=== PATIENT | female | born 1980 | race Caucasian/White ===

== ENCOUNTER 2019-08-30 15:16 | Outpatient (CLI) | payer OTHER, SELFPAY ==
--- NOTE | ~2019-08-30 | XR_ITS ---
EXAMINATION: XR chest 2V EXAM DATE: 08/30/2019 15:45 INDICATION: Chest heaviness. TECHNIQUE: Frontal and lateral projections of the chest obtained and reviewed. There is no prior luis dy for comparison. FINDINGS: The lungs are clear. There are no pleural effusions. The cardiomediastinal silhouette is within normal limits. There is no pneumothorax suspected. The bones and soft tissues are unremarkab le. There are cholecystectomy clips. IMPRESSION: No acute cardiopulmonary findings. Reviewed, dictated and finalized at location A.
[2019-08-30 15:33] LABS: Basophils Absolute Auto 0.04 K/mm3 (0.00-0.10); Basophils Percent Auto 0.6 % (0.0-1.0); Eosinophils Absolute Auto 0.21 K/mm3 (0.02-0.50); Eosinophils Percent Auto 3.1 % (1.0-6.0); Hematocrit 40.5 % (35.0-49.0); Hemoglobin 13.4 g/dL (12.0-15.0); Immature Granulocyte Absolute 0.02 K/mm3 (0.00-0.00); Immature Granulocyte Percent A 0.3 % (0.0-0.0); Lymphocytes Absolute Auto 2.01 K/mm3 (1.10-4.50); Mean Corpuscular HGB Conc 33.1 g/dL (32.0-36.0); Mean Corpuscular Hemoglobin 30.1 pg (27.0-31.0); Mean Platelet Volume 9.6 fl (9.2-11.8); Monocytes Absolute Auto 0.45 K/mm3 (0.10-0.90); Monocytes Percent Auto 6.7 % (2.0-11.0); Neutrophils Percent Auto 59.3 % (50.0-70.0); Platelet Count Result 319 K/mm3 (150-420); Red Blood Count 4.45 M/mm3 (4.20-5.40); Red Cell Distribution Width 12.9 % (11.6-14.4); White Blood Count 6.7 K/mm3 (4.8-10.8)
--- NOTE | 2019-08-30 15:35 | ECG_ITS ---
SINUS BRADYCARDIA WITH SINUS ARRHYTHMIA NORMAL ECG Electronically Signed On 08-30-2019 15:40:52 CDT by Cristiano Santana D.O. NO PREVIOUS ECG AVAILABLE FOR COMPARISON MTDD
[2019-08-30 15:36] LABS: Add Urine Microscopic? YES; Appearance Urine Clear (Clear); Bilirubin Urine Negative (Negative); Blood Urine Negative (Negative); Color Urine Yellow (Yellow); Glucose Urine UA Negative (Negative); Ketones Urine Negative (Negative); Leukocyte Esterase Ur 2+ (Negative); Nitrate Urine Negative (Negative); Protein Urine Negative (Negative); Specific Grav Ur 1.015 (1.010-1.020); Urobilinogen Urine 0.2 mg/dL (0.2-1.0); pH Urine 7.5 (5.0-8.0)
[2019-08-30 15:46] LABS: Bacteria Urine Trace /hpf; RBC Urine 0-2 /hpf (0-2); Squamous Epithelial Cell Urine Few /hpf (Few)
[2019-08-30 16:08] LABS: BNP 14.8 pg/mL (0-100)
[2019-08-30 16:53] LABS: Alanine Aminotransferase 138 U/L (14-59); Albumin Level 4.1 g/dL (3.4-5.0); Alkaline Phosphatase 88 U/L (46-116); Anion Gap 11.6 mmol/L (7-16); Aspartate Amino Transferase 42 U/L (15-37); Bilirubin,Total 0.2 mg/dL (0.00-1.00); Blood Urea Nitrogen 22 mg/dL (7-18); Carbon Dioxide 32 mmol/L (21-32); Chloride 104 mmol/L (98-108); Creatine Kinase 66 U/L (26-192); Estimated Glomerular Filt Rate > 60; Glucose 97 mg/dL (70-99); Osmolality Calculated 299 mOsm/kg (285-295); Potassium 4.6 mmol/L (3.5-5.1); Sodium 143 mmol/L (136-145); Thyroid Stimulating Hormone 0.97 uIU/mL (0.36-3.74); Total Protein 7.5 g/dL (6.4-8.2)
[2019-08-30 17:06] LABS: Beta HCG Quantitative < 1.00 mIU/mL (0-6); Troponin I < 0.02 ng/mL (0.00-0.056)
== END 2019-08-30 15:17 | disposition home or self-care (01) ==
PROVIDERS: PCP Internal Medicine; Visit Provider Internal Medicine
DX: R07.9 Chest pain, unspecified (principal); N91.2 Amenorrhea, unspecified
CPT/HCPCS: 36415; 71046; 80053; 81001; 82550; 82553; 83880; 84443; 84484; 84702; 85025; 85380; 93005

== ENCOUNTER 2019-09-06 08:17 | Outpatient (CLI) | payer OTHER, SELFPAY ==
--- NOTE | ~2019-09-06 | US_ITS ---
EXAMINATION: US abdomen limited DATE: 09/06/2019 09:43 INDICATION: Abnormal liver function tests. TECHNIQUE: Multiple grayscale and Doppler ultrasound images of the abdomen were obtained. COMPARISON: None FINDINGS: The visualized portions of the head, body, and tail of the pancreas are normal. The liver i s normal without focal lesion. No liver surface nodularity. There is normal flow in main portal vein. The gallbladder is absent. The common duct is normal and measures 2 mm. IMPRESSION: 1. Normal right upper quadrant ultrasound status post cholecystectomy. Reviewed, dictated and finalized at location E.
== END 2019-09-06 08:18 | disposition home or self-care (01) ==
LOC: CHSIMG 08:19
PROVIDERS: PCP Internal Medicine; Visit Provider Internal Medicine
DX: R94.5 Abnormal results of liver function studies (principal)
CPT/HCPCS: 76705

== ENCOUNTER 2019-10-25 15:59 | Outpatient (CLI) | payer OTHER, SELFPAY ==
[2019-10-25 16:28] LABS: Alanine Aminotransferase 30 U/L (4-35); Albumin Level 4.4 g/dL (3.5-5.1); Alkaline Phosphatase 75 U/L (38-126); Aspartate Amino Transferase 29 U/L (14-36); Bilirubin,Total 0.1 mg/dL (0.2-1.3); Blood Urea Nitrogen 18 mg/dL (7-17); Calcium 8.7 mg/dL (8.4-10.2); Carbon Dioxide 27 mmol/L (22-30); Chloride 104 mmol/L (98-107); Estimated Glomerular Filt Rate > 60; Glucose 105 mg/dL (65-105); Potassium 4.5 mmol/L (3.4-5.0); Sodium 140 mmol/L (137-145)
[2019-10-25 17:10] LABS: Iron 82 ug/dL (37-170)
[2019-10-25 17:20] LABS: Percent Iron Saturation 31 % (20-50)
[2019-10-27 22:12] LABS: Ceruloplasmin 30 mg/dL (18-53)
[2019-10-28 22:01] LABS: Mitochondrial (M2) Ab (IgG) <=20.0 U (<=20.0)
[2019-10-31 22:01] LABS: ALT 28 U/L (6-29); Alpha-2-Macroglobulin 204 mg/dL (106-279); Apolipoprotein A1 155 mg/dL (101-198); Fibrosis Score 0.05; Fibrosis Stage F0; GGT 22 U/L (3-50); Haptoglobin 139 mg/dL (43-212); Necroinflammat Act Grade A0; Total Bilirubin 0.2 mg/dL (0.2-1.2)
== END 2019-10-25 16:00 | disposition home or self-care (01) ==
PROVIDERS: PCP Internal Medicine; Visit Provider Internal Medicine Gastroenterology
DX: R74.8 Abnormal levels of other serum enzymes (principal)
CPT/HCPCS: 36415; 80053; 81596; 82104; 82390; 82728; 83520; 83540; 83550; 86038

== ENCOUNTER 2020-07-30 11:48 | Outpatient (CLI) | payer OTHER, SELFPAY ==
--- NOTE | ~2020-07-30 | XR_ITS ---
EXAMINATION: XR shoulder RT min 2V DATE: 07/30/2020 12:02 INDICATION: Right shoulder pain. TECHNIQUE: 4 views of right shoulder were obtained. COMPARISON: None. FINDINGS: Bone alignment is normal. There is a chronic impaction fracture deformity of superior poste rolateral humeral head (Hill-Sachs fracture deformity). No acute fracture. Glenohumeral joint is norm al. There is mild acromioclavicular joint osteoarthritis. IMPRESSION: 1. Mild acromioclavicular joint osteoarthritis. 2. Hill-Sachs fracture deformity of humeral head, likely old. Reviewed, dictated and finalized at location A.
== END 2020-07-30 11:49 | disposition home or self-care (01) ==
LOC: CHSIMG 11:50
PROVIDERS: PCP Internal Medicine; Visit Provider Internal Medicine
DX: M25.511 Pain in right shoulder (principal); S43.001A Unspecified subluxation of right shoulder joint, initial encounter
CPT/HCPCS: 73030

== ENCOUNTER 2021-08-05 10:27 | Outpatient (RCR) | payer OTHER, SELFPAY ==
[2021-07-21 12:27] VITALS: BP 114/71; PULSE 82
--- NOTE | ~2021-08-05 | US_ITS ---
EXAMINATION: US OB BPP wo non-stress DATE: 08/05/2021 11:41 INDICATION: Nonreactive cardiac tracing on in office exam TECHNIQUE: Real-time pelvic ultrasound was performed. The interpreting radiologist was not present fo r the study. COMPARISON: None. FINDINGS: There is a single living fetus in vertex presentation. The placenta is anterior. heart rate is 138 beats per minute (bpm). Biophysical profile performed by the technologist: breathing (30 sec sustained breathing in 30 minutes): 2 out of 2 movement (3 gross body movements in 30 minutes): 2 out of 2 tone (one episode of rzwduzj-hnssnmhvy-mkdrfsh limb movement): 2 out of 2 Amniotic fluid pocket (2 cm): 2 out of 2 Total score: 8 out of 8 IMPRESSION: 1. Single living fetus in vertex presentation with heart rate of 138 bpm. 2. Biophysical profile 8 out of 8. Reviewed, dictated and finalized at location A.
--- NOTE | ~2021-08-05 | US_ITS ---
EXAMINATION: US OB BPP wo non-stress EXAM DATE: 07/21/2021 12:16 INDICATION: Decel in office/hx of COVID. 3rd trimester. TECHNIQUE: Pelvic obstetrical transabdominal sonogram was performed by a technologist. There are mu ltiple grayscale and Doppler images available for interpretation. There are no earlier studies of th is gestation for comparison. FINDINGS: There is a single fetus identified in vertex presentation with a heart rate of 139 beats p er minute. The placenta is located in the anterior position. There is no sonographic evidence of ret roplacental hemorrhage identified. There is subjectively expected amount of amniotic fluid. BIOPHYSICAL PROFILE (performed by the technologist) breathing (30 sec sustained breathing in 30 minutes): 0 out of 2 movement (3 gross body movements in 30 minutes): 2 out of 2 tone (one episode of dvphpmi-yhwwnjvdq-wlotafg limb movement): 2 out of 2 Amniotic fluid pocket (2 cm): 2 out of 2 Total score: 6 out of 8 IMPRESSION: 1. Single fetus with heart rate of 139 bpm. 2. Abnormal BPS 6/8. Reviewed, dictated and finalized at location A.
[2021-08-05 11:53] VITALS: BP 125/81; PULSE 84
== END 2021-08-25 08:09 | disposition home or self-care (01) ==
LOC: ANHOBOP 10:27
PROVIDERS: PCP Internal Medicine; Visit Provider Obstetrics & Gynecology Gynecology
DX: O36.8330 Maternal care for abnormalities of the fetal heart rate or rhythm, third trimester, not applicable or unspecified (principal); Z3A.34 34 weeks gestation of pregnancy; Z3A.36 36 weeks gestation of pregnancy
CPT/HCPCS: 59025; 76819

== ENCOUNTER 2021-08-19 05:43 | Inpatient (IN) | payer OTHER, SELFPAY ==
[2021-08-19] VITALS (20 sets, daily range): BP systolic 102–141; BP diastolic 67–96; PULSE 68–98; RESP 18; TEMP 36.6–36.8; BMI 33.5
--- NOTE | 2021-08-19 07:02 | LDADM ---
This patient, Eunice Rboert, was admitted to Labor/Delivery/Recovery 102 on 08/19/21 at 05:43. Plans for labor, pain management and were discussed with patient. Patient/family oriented to hospital policies and general routines including ID bracelet, bed and alarms, visiting hours, pain management, procedures, bathroom and other care routines, personal items, smoking policy, room service/diet and guest tray routines, infant security routines, and visiting hours. Patient/Family are encouraged to report perceived risks to care and to ask questions if they do not understand what they are told or what they should do. See OBIX for further documentation.
[2021-08-19 07:19] LABS: Basophils Percent Auto 0.3 % (0.2-1.2); Eosinophils Absolute Auto 0.1 K/mm3 (0-0.3); Hematocrit 39.7 % (37.0-47.0); Immature Granulocyte Absolute 0.05 K/mm3 (0.00-0.031); Immature Granulocyte Percent A 0.5 % (0-0.5); Lymphocytes Absolute Auto 1.74 K/mm3 (0.9-3.2); Lymphocytes Percent Auto 17.4 % (18.3-44.2); Mean Corpuscular HGB Conc 32.7 g/dl (32-36); Mean Corpuscular Hemoglobin 29.8 pg (26-34); Mean Corpuscular Volume 91.1 fl (80-100); Mean Platelet Volume 9.7 fl (7.4-10.4); Monocytes Absolute Auto 0.6 K/mm3 (0.1-0.6); Monocytes Percent Auto 6.1 % (2.6-8.5); Neutrophils Absolute Auto 7.5 K/mm3 (1.3-6.7); Neutrophils Percent Auto 74.7 % (45.5-73.1); Platelet Count Result 270 k/mm3 (150-375); Red Blood Count 4.36 M/mm3 (4.2-5.4)
--- NOTE | 2021-08-19 07:39 | WPDOBADMIT ---
Obstetrics - Admit Note Admission Note: record reviewed. No pertinent additions to the history and/or any subsequent changes in the physical findings that are not consistent with the expected course of the were found. Additions to the history and/or subsequent changes in the physical findings follow. None. Arrived in active labor. SVE by RN 7cm with intact membranes. Discussed plan of care with pt. She denies desire for epidural. Discussed AROM and she is agreeable. AROM performed and small amount of green tinged, meconium stained amniotic fluid returned. SVE 7-8 cm, very soft and stretchy. Plan for expectant management.
[2021-08-19] MEDS: OXYTOCIN 30 UNITS/NS 500 ML 30 UNITS/500 ML BAG 999 UNITS IV CONT (08:21)
--- NOTE | 2021-08-19 08:30 | PM.OBPRVD ---
OB - Delivery Note Procedure Delivery date: 08/19/21 Procedure: Events: Other (Covid infection during ) Induction method: AROM Delivery augmentation: Rupture of Membranes Delivery monitor: External FHT and External Uterine Route of delivery: Laceration Description: Periurethral (hemostatic, no repair required) and Labial (bilateral, 1st degree. Hemostatic, no repair required. ) Specimen: Yes (Placenta) Quantitative Blood Loss (ml): 100 Anesthesia type: None Disposition: Floor Baby Date of : 08/19/21 Time of : 08:30 Weeks of gestation at delivery: 38 gender: Female Weight (pounds): 9 Weight (ounces): 5 presentation: vertex position: Left Occiput Anterior Placenta delivery description: Spontaneous Cord Vessel Description: 3 Vessels and Delayed Cord Clamping (40 seconds) score one minute: 8 score five minutes: 9
--- NOTE | 2021-08-19 08:32 | PM.OBDSVD ---
DS: Admitting Diagnosis Discharge Date 08/21/2021 Admitting Diagnosis IUP at 38 weeks, spontaneous labor DS: Discharge Diagnosis Discharge Diagnosis (1) 38 weeks gestation of : Code(s): Z3A.38 - 38 weeks gestation of Status: Acute (2) (normal spontaneous vaginal delivery): Code(s): O80 - Encounter for full-term uncomplicated delivery Status: Acute OB - DS: Summary OB Procedures : NST and Ultrasound OB Procedures Intrapartum: Spontaneous Vag Delivery OB Procedures: : None Peripartum Data Delivery Method: Natural Vaginal Laceration Description: Periurethral and Labial Episiotomy description: None complications: none Status at Discharge Functional status at discharge: independent ambulation Overall status at discharge: patient is back to baseline Time Spent with Patient Time attestation: Total time spent providing and/or coordinating discharge services: DS: Data Data Completed and Pending Labs on day of discharge: Labs from last 24 hours 08/19/21 08/19/21 07:09 07:09 WBC 10.0 RBC 4.36 Hgb 13.0 Hct 39.7 MCV 91.1 MCH 29.8 MCHC 32.7 RDW 14.0 Plt Count 270 MPV 9.7 Immature Gran % (Auto) 0.5 Neut % (Auto) 74.7 H Lymph % (Auto) 17.4 L [place] % (Auto) 6.1 Eos % (Auto) 1.0 Baso % (Auto) 0.3 Lymph # (Auto) 1.74 [place] # (Auto) 0.6 Eos # (Auto) 0.1 Baso # (Auto) 0.0 Abs Immat Gran (auto) 0.05 H Absolute Neuts (auto) 7.5 H Absolute Nucleated RBC 0.0 Nucleated RBC % 0.0 RPR Pending Discharge Plan Discharge Consulting providers: Mounika Pepper Discharging Clinician: Sakshi Darling Anticipated Discharge Date/Time: 08/20/21 08:35 Patient Disposition: Home, Self-Care Activity: may shower and pelvic rest Diet: as tolerated and regular Discharge Instructions: Education: Mom and Baby Guide Given to: Mother Follow-Up: Call your delivering provider's office for an appointment to be seen in: 6 Weeks Mom and baby [facility] for the follow-up appointment. Appointment Date/Time: Sunday, August 22, 2021 at 11:00 a.m. What to expect at your follow-up visit: Blood Pressure Check Physical Assessment Call [phone] if you are unable to keep your appointment time. BREAST CARE: * Wear a snug supportive bra. * For engorgement discomfort: Breast Feeding: * Apply warm moist washcloths * Express milk as needed to relieve engorgement * Wear loose clothing * For sore nipples: * Identify correct latch-on * Apply warm moist washcloths before and after nursing * Air dry nipples after nursing * May apply Lansinoh cream to nipples EPISIOTOMY/PERINEAL CARE: * Until bleeding stops, use your anderson bottle after urinating * Change your pad frequently throughout the day * You may take sitz baths several times a day (fill your bathtub with warm water and soak for 20 minutes.) Do NOT bathe in the water * No tub baths until seen by your physician - You may shower ACTIVITY: * Rest as much as possible. * Do not exercise or lift anything heavier than your baby (such as laundry or other children.) * Avoid stairs or driving as much as possible. * Do not put anything into the vagina. No douching, tampons, or sexual activity until seen by physician. NOTIFY PHYSICIAN IF YOU HAVE ANY QUESTIONS OR IF ANY OF THE FOLLOWING SYMPTOMS OCCUR: * If your perineum becomes red, swollen, or more painful than what you have experienced in the hospital. * If your vaginal bleeding becomes foul smelling. * If your vaginal bleeding becomes more heavy than a period or if your bleeding changes from pink to bright red. However, you may pass an occasional walnut-sized clot once or twice for the first week . * If you experience a sharp, shooting pain in you calves. * If you disc
[2021-08-19] MEDS: OXYTOCIN 30 UNITS/NS 500 ML 30 UNITS/500 ML BAG 125 UNITS IV CONT (08:49)
[2021-08-19] MEDS: IBUPROFEN 600 MG TABLET PO (09:38)
[2021-08-19 14:20] LABS: Rapid Plasma Reagin Non-Reactive (NonReactive)
--- NOTE | 2021-08-19 18:00 | OBPPTRN ---
Patient transferred to post room #283 via W/C. Support person present. Oriented to unit, room, information board, rooming in, admission packet and security measures. Patient verbalizes understanding.
[2021-08-20 00:30] VITALS: BP 123/74; PULSE 73; RESP 16; TEMP 36.6
[2021-08-20 04:40] VITALS: BP 116/62; PULSE 66; RESP 18; TEMP 36.9
[2021-08-20 05:52] LABS: Hematocrit 37.2 % (37.0-47.0); Hemoglobin 12.5 g/dL (12.0-15.0)
--- NOTE | 2021-08-20 07:45 | PM.OBPNVD ---
OB - PN: Subj Subjective Date/time seen: 08/20/21 07:45 Patient comments: no complaints and pain well controlled baby status: nursing well [place] feeding status: exclusively breast feeding OB - PN: Obj Data Labs CBC & Chem 7: 08/20/21 04:49 Labs: Laboratory Results - last 24 hr 08/19/21 08/19/21 08/20/21 07:09 07:09 04:49 Hgb 12.5 Hct 37.2 RPR Non-reactive Blood Type A Positive Antibody Screen Positive Antibody Identification Anti-E Antigen Identification C Antigen - NEGATIVE KELLY, IgG Interpret Negative KELLY, Poly Interpret Neg KELLY, Complement Interp Not Performed Enhanced Crossmatch See Detail OB - PN A/P Plan day: 1 Plan: routine care Time Spent With Patient Time: Total time spent is greater than 50% in coordination of care (as documented) at patient's floor/unit and/or counseling patient: Exam Narrative: Fundus @ U, firm and nontender.
[2021-08-20 08:40] VITALS: BP 101/68; PULSE 65; RESP 16; TEMP 36.6; O2SAT 97
[2021-08-20] MEDS: IBUPROFEN 600 MG TABLET PO (08:41)
[2021-08-20] MEDS: MULTIVIT/MIN/PREN/FOL AC/IRON TABLET 1 TAB PO (08:41)
--- NOTE | 2021-08-20 16:30 | PC.NURSE ---
Patient instructed on viewing the discharge video Mother & Baby Care, The First Two Weeks . Patient was given the opportunity and encouraged to ask questions. Patient verbalized understanding of information shared and has been given the mother/baby guide for home reference.
[2021-08-20 19:10] VITALS: BP 113/70; PULSE 77; RESP 16; TEMP 36.8
--- NOTE | 2021-08-21 07:39 | PM.OBPNVD ---
OB - PN: Subj Subjective Date/time seen: 08/21/21 07:39 Patient comments: no complaints and pain well controlled baby status: doing well and nursing well OB - PN: Obj Data Labs CBC & Chem 7: 08/20/21 04:49 OB - PN A/P Plan day: 2 Plan: routine care, discharge home and follow up 6 weeks Time Spent With Patient Time: Total time spent is greater than 50% in coordination of care (as documented) at patient's floor/unit and/or counseling patient: Exam : Bimanual exam- vagina & uterus: other (Uterus firm, nt @U)
[2021-08-21 07:50] VITALS: BP 110/72; PULSE 81; RESP 16; TEMP 36.4; O2SAT 99
[2021-08-21 08:00] VITALS: PULSE 81; RESP 16; O2SAT 99
[2021-08-21] MEDS: MULTIVIT/MIN/PREN/FOL AC/IRON TABLET 1 TAB PO (08:45)
--- NOTE | 2021-08-21 13:51 | PC.NURSE ---
1030 - Mother () verbalizes she is able to independently latch with appropriate positioning/alignment. She denies any nipple discomfort and is responsively . Infant is currently meeting outcomes for weight, output, jaundice and feeding frequencies of 8-12 times in 24 hours. Infant has had appropriate feedings in the last 24 hours meets the outcomes for weight, output and jaundice at this time. Mother states she is confident to continue effectively her infant at home. Mother voiced understanding of the education shared and mother declines any additional assistance/education at this time. Mother is encouraged to call for assistance if her infant doesn?t latch or there is discomfort with latching. Mother voiced understanding of information shared and mom and baby guide reviewed for additional resource information . Reported to the primary RN.
[2021-08-22 11:16] VITALS: BP 128/77; PULSE 71; RESP 20; TEMP 36.8; O2SAT 100
== END 2021-08-21 13:00 | disposition home or self-care (01) | DRG 807 ==
LOC: ANHLDR 14:52 → ANHOB2 18:49
PROVIDERS: Advanced Practice Midwife; Admitting Provider Obstetrics & Gynecology Gynecology; PCP Internal Medicine; Visit Provider Obstetrics & Gynecology Gynecology
DX: O77.0 Labor and delivery complicated by meconium in amniotic fluid (principal); Z37.0 Single live birth; Z3A.38 38 weeks gestation of pregnancy; O36.8330 Maternal care for abnormalities of the fetal heart rate or rhythm, third trimester, not applicable or unspecified; Z86.16 Personal history of COVID-19; O70.0 First degree perineal laceration during delivery; O71.82 Other specified trauma to perineum and vulva
CPT/HCPCS: 36415; 85014; 85018; 85025; 86592; 86850; 86870; 86880; 86900; 86901; 86902; 86905; 86922; 86971; 88307; A9270; J2590

== ENCOUNTER → 2023-03-09 12:32 | Outpatient (CLI) | payer OTHER, SELFPAY ==
--- NOTE | ~2023-03-09 | MM_ITS ---
EXAMINATION: MM screening junior BI w tamara HISTORY: Screening mammogram TECHNIQUE: Craniocaudal and mediolateral oblique 3-D tomosynthesis images were obtained and synthetic 2-D images were generated. CAD analysis was submitted and interpreted. COMPARISON: No prior mammogram is available for comparison at this institution. BREAST PARENCHYMAL COMPOSITION: There are scattered areas of fibroglandular density. FINDINGS: There is no evidence of suspicious mass, calcification, or architectural distortion to sugg est malignancy in either breast. IMPRESSION: 1. No mammographic evidence of malignancy. 2. Recommend routine screening mammography in one year. BI-RADS Category 1: Negative Reviewed, dictated and finalized at location A. 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
== END ==
PROVIDERS: PCP Advanced Practice Midwife; Visit Provider Advanced Practice Midwife
DX: Z12.31 Encounter for screening mammogram for malignant neoplasm of breast (principal)
CPT/HCPCS: 77063; 77067

== ENCOUNTER 2023-12-17 08:02 | Outpatient (CLI) | payer OTHER, SELFPAY ==
--- NOTE | ~2023-12-17 | US_ITS ---
EXAMINATION: US OB <= 14 weeks fetus DATE: 12/17/2023 08:27 INDICATION: Advanced maternal age TECHNIQUE: Real-time transabdominal and transvaginal obstetric ultrasound. FINDINGS: No prior studies for comparison. The uterus measures 13.5 x 7.7 x 2.7 cm. There is an intrauterine gestational sac, with pole id entified. The crown rump length measures 4.7 cm, which correlates with a estimated gestational age o f 11 weeks 4 days. heart rate 161 bpm. There is a small subchorionic hematoma measuring 9 mm. F etal heart tones are identified measuring 161 bpm. The ovaries are within normal limits. IMPRESSION: 1. SL IUP with an EGA of 11 weeks, 4 days (EDC by current ultrasound of 07/03/2024). 2: Small subchorionic hematoma measuring 9 x 9 x 9 mm. Reviewed, dictated and finalized at location B. IMPRESSION: 1. SL IUP with an EGA of 11 weeks, 4 days (EDC by current ultrasound of 07/04/19 25). 2: Small subchorionic hematoma measuring 9 x 9 x 9 mm.
== END 2023-12-17 08:03 | disposition home or self-care (01) ==
LOC: MICIMG 08:03
PROVIDERS: PCP Obstetrics & Gynecology Gynecology; Visit Provider Obstetrics & Gynecology Gynecology
DX: O46.90 Antepartum hemorrhage, unspecified, unspecified trimester (principal); Z3A.00 Weeks of gestation of pregnancy not specified
CPT/HCPCS: 76801

== ENCOUNTER 2024-02-01 14:04 | Outpatient (CLI) | payer OTHER, SELFPAY ==
--- NOTE | ~2024-02-01 | US_ITS ---
EXAMINATION: US OB limited DATE: 02/01/2024 14:59 INDICATION: Subchronic hematoma in the first trimester. Follow-up. TECHNIQUE: Real-time ultrasound of the pelvis was performed. COMPARISON: Ultrasound 12/17/2023 FINDINGS: There is a single fetus in vertex presentation. The placenta is anterior, 8.6 cm from the cervix. Fe glory heart rate is 140 beats per minute (bpm). The amniotic fluid volume is subjectively normal. IMPRESSION: 1. Single living fetus in vertex presentation. 2. No subchorionic hematoma. Reviewed, dictated and finalized at location A.
== END 2024-02-01 14:05 | disposition home or self-care (01) ==
LOC: MICIMG 14:05
PROVIDERS: PCP Obstetrics & Gynecology Gynecology; Visit Provider Obstetrics & Gynecology Gynecology
DX: O36.8910 Maternal care for other specified fetal problems, first trimester, not applicable or unspecified (principal); Z3A.00 Weeks of gestation of pregnancy not specified
CPT/HCPCS: 76815

== ENCOUNTER 2024-06-22 09:24 | Outpatient (RCR) | payer OTHER, SELFPAY ==
--- NOTE | ~2024-06-22 | US_ITS ---
EXAMINATION: US OB BPP wo non-stress DATE: 06/22/2024 10:58 INDICATION: Nonreactive nonstress test on in office examination TECHNIQUE: Real-time pelvic ultrasound was performed. The interpreting radiologist was not present fo r the study. COMPARISON: 02/01/2024 FINDINGS: There is a single living fetus in vertex presentation. The placenta is anterior. heart rate is 138 beats per minute (bpm). Amniotic fluid volume is subjectively normal with normal deepest vertica l pocket measurement of 7.9 cm. Biophysical profile performed by the technologist: breathing (30 sec sustained breathing in 30 minutes): 2 out of 2 movement (3 gross body movements in 30 minutes): 2 out of 2 tone (one episode of gjxbspn-irukevotg-dghsrve limb movement): 2 out of 2 Amniotic fluid pocket (2 cm): 2 out of 2 Total score: 8 out of 8 IMPRESSION: 1. Single living fetus in vertex presentation with heart rate of 138 bpm. 2. Biophysical profile 8 out of 8. Reviewed, dictated and finalized at location L. 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
[2024-06-22 10:07] VITALS: BP 127/81; PULSE 87
--- NOTE | 2024-06-22 11:20 | PC.NURSE ---
1120- Spoke with Dr. Swartz regarding patient being sent over from office by [facility] for non reactive NST in office. NST reactive here and BPP 11/24. No further orders .
== END 2024-09-20 23:59 | disposition home or self-care (01) ==
LOC: ANHOBOP 09:24
PROVIDERS: PCP Internal Medicine; Visit Provider Obstetrics & Gynecology Gynecology
DX: O26.893 Other specified pregnancy related conditions, third trimester (principal); Z3A.37 37 weeks gestation of pregnancy
CPT/HCPCS: 59025; 76819

== ENCOUNTER 2024-06-26 20:17 | Observation (INO) | payer OTHER, SELFPAY ==
[2024-06-26 20:26] VITALS: TEMP 36.2
--- OUTSIDE RECORDS SUMMARY | 2024-06-26 20:51 | XMS_ITS | Referral Summary ---
Author Organization [facility] Address [address] [place] [address] Care Team Providers Care Spray Applicator Name Role Phone Simone Martinez MD Primary Care Provider [phone] Source Comments [facility],non-owned Affiliates and Associated Physician Practices is amultiple site organization consisting of ambulatory clinics and hospital sitesin [place], [place] and [place]. This disclosure is being madepursuant to the Care Everywhere program and may not contain all information available regarding this patient. 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 No dating scan due to patient sure of LMP this per OB office. 24 weeks gestation of 04/04/2021 Social History Tobacco Use Types Packs/Day Years Used Date Smoking Tobacco: Never Smokeless Tobacco: Never Alcohol Use Standard Drinks/Week Comments Not Currently 0 (1 standard drink = 0.6 oz pur e alcohol) Sex and Gender Information Value Date Recorded Sex Assigned at Not on file Gender Identity Not on file Sexual Orientation Not on file Plan of Treatment Not on file Care Teams Spray Applicator Relationship Specialty Start Date End Date Simone Martinez MD [address] [place], [place] [id number] PCP - General 08/26/21
--- OUTSIDE RECORDS SUMMARY | 2024-06-26 20:51 | XMS_ITS | Clinical Summary ---
Author Organization [facility] Address [address] [place] [address] Phone Care Team Providers Care Vessel Builder Name Role Phone Simone Martinez MD Primary Care Provider [phone] Encounters Date Type Department Care Team Description 06/24/2024 External Device Data STL ABSTRACTION Provider, Abstract 06/23/2024 External Device Data STL ABSTRACTION Provider, Abstract 06/20/2024 External Device Data STL ABSTRACTION Provider, Abstract 06/12/2024 7:21 AM STRETCHER OPERATOR - 06/12/2024 11:59 PM STRETCHER OPERATOR Hospital Encounter [facility] [address] [place] [address] Dori Sandhu MD Discharge Disposition: Home or Self Care 06/12/2024 Abstract [facility] - [facility] [address] [place] [address] Eileen Dalal 06/06/2024 External Device Data STL ABSTRACTION Provider, Abstract 05/30/2024 External Device Data STL ABSTRACTION Provider, Abstract 05/11/2024 8:57 AM STRETCHER OPERATOR - 05/11/2024 11:59 PM STRETCHER OPERATOR Hospital Encounter [facility] 2022 Cassie Jones [address] [place] [address] Dori Sandhu MD Discharge Disposition: Home or Self Care 05/11/2024 External Device Data STL ABSTRACTION Provider, Abstract 05/09/2024 External Device Data STL ABSTRACTION Provider, Abstract 05/02/2024 External Device Data STL ABSTRACTION Provider, Abstract 04/17/2024 9:20 AM STRETCHER OPERATOR - 04/17/2024 11:59 PM STRETCHER OPERATOR Hospital Encounter [facility] 2022 Cassie Jones [address] [place] [address] Rahul Coley MD Mathur, Manish, MD Discharge Disposition: Home or Self Care from Last 3 Months Social History Tobacco Use Types Packs/Day Years Used Date Smoking Tobacco: Never Assessed Comments Unknown Sex and Gender Information Value Date Recorded Sex Assigned at Not on file Legal Sex Female 2:09 PM CDT Gender Identity Not on file Sexual Orientation Not on file Plan of Treatment Health Maintenance Due Date Last Done Comments Pre-Diabetes and Diabetes Screening 1982 DTAP/TDAP/TD VACCINES (1 - Tdap) 2001 HEPATITIS B VACCINES (1 of 3 - 19+ 3-dose series) 2001 CERVICAL CANCER SCREENING 2012 11/28/2007 BREAST CANCER SCREENING 2022 INFLUENZA VACCINE (#1) 2023 HPV VACCINES Aged Out No longer eligi ble based on patient's age to complete this topic Procedures Procedure Name Priority Date/Time Associated Diagnosis Comments US OB FOLLOW UP PER FETUS Routine 06/12/2024 7:47 AM STRETCHER OPERATOR Multigravida of advanced maternal age in second trimester US OB FOLLOW UP PER FETUS Routine 05/11/2024 9:46 AM STRETCHER OPERATOR Multigravida of advanced maternal age in second trimester US OB FOLLOW UP PER FETUS Routine 04/17/2024 9:43 AM STRETCHER OPERATOR Multigravida of advanced maternal age in second trimester from Last 3 Months Results * US OB FOLLOW UP PER FETUS (06/12/2024 7:47 AM STRETCHER OPERATOR) Only the most recent of3 resultswithin the time period is included. Anatomical Region Laterality Modality Pelvis Ultrasound 06/12/2024 7:27 AM STRETCHER OPERATOR Narrative 06/12/2024 8:31 AM STRETCHER OPERATOR STL FOLLOW UP ----- Pat. Name: ROSALVA LAYNE Study Date: 06/12/2024 7:27am Pat. NO: [id number] Referring MD: MARIAN SCALES MD Site: [place] [facility] Ballroom Dancer: Shara Harris RDMS : 1980 Age: 43 ----- INDICATION ----- Screening Follow-Up Advanced Maternal Age (AMA), Multigravida Maternal Obesity (BMI<40) Complicating Grand Multiparity Antepartum Complications, Other Specified CODING ----- Diagnoses Z3A.36: Weeks of gestation O09.43: Supervision of with grand multiparity O99.213: Obesity complicating O09.523: Supervision of elderly multigravida Z36.3: Encounter for screening for malformations Z3A.36: Weeks of gestation O99.891: Other specified diseases and conditions complicating O09.43: Supervision of with grand multiparity O99.213: Obesity complicating O09.523: Supervision of elderly multigravida Z36.2: Encounter for other screening follow-up Procedures 53530: Ultrasound, uterus, real time with image documentation, follow up, transabdominal approach per fetus HISTORY ----- OB History 11. Para 10 T10L10 METHOD ----- Transabdominal ultrasound examination ----- Rey . Number of fetuses: 1 DATING ----- GA by prior assessment 36 w + 2 d PETRONA by prior assessment: 07/08/2024 Ultrasound examination on: 06/12/2024 GA by U/S based upon: AC, BPD, EFW, Femur, HC GA by U/S 36 w + 5 d PETRONA by U/S: 07/05/2024 Method of dating: Restore dating from previous exam Assigned: based on stated PETRONA, selected on 02/21/2024 Assigned GA 36 w + 2 d Assigned PETRONA: 07/08/2024 BIOMETRY ----- BPD 89.9 mm 36w 3d 64% Hadlock OFD 119.3 mm -/- 99% Qing HC 335.2 mm 38w 3d 71% Hadlock AC 332.7 mm 37w 1d 83% Hadlock Femur 68.2 mm 35w 0d 17% Hadlock HC / AC 1.01 44% Nicolaides Weight Calculation: EFW 3,007 g 36w 6d 64% Hadlock EFW (lb,oz) 6 lb 10 oz EFW by Hadlock ([id number]) Head / Face / Neck Biometry: Manager Occupational 4.2 mm Extremities / Bony Struc Biometry: FL / BPD 0.76 FL / HC 0.20 FL / AC 0.21 GENERAL EVALUATION ----- Cardiac activity present. FHR 155 bpm. movements: present. Presentation: cephalic Placenta: Placental site: anterior Umbilical cord: Cord vessels: 3 vessel cord. Insertion site: placental insertion: normal Amniotic fluid: Amount of AF: normal amount. MVP 5.5 cm. AL 13.6 cm. Q1 4.0 cm, Q2 2.0 cm, Q3 2.1 cm, Q4 5.5 cm ANATOMY ----- The following structures appear normal: Head / Neck Cranium. Midline falx. Heart / Thorax Diaphragm. Abdomen Stomach. Kidneys. The following structures could not be adequately visualized: Abdomen Bladder. GROWTH OVERVIEW ----- Exam date GA BPD (mm) HC (mm) AC (mm) FL (mm) HL (mm) EFW (g) 02/21/2024 20w 2d 47.7 56% 180.2 49% 169.9 90% 35.6 76% 31.3 57% 427 95% 04/17/2024 28w 2d 73.3 74% 274.6 72% 257.9 87% 53.6 38% 1,391 79% 05/11/2024 31w 5d 83.4 89% 308.3 83% 296.1 92% 61.4 40% 2,136 83% 06/12/2024 36w 2d 89.9 64% 335.2 71% 332.7 83% 68.2 17% 3,007 64% COMMENT ----- Patient's name and date of were verified by the weeder prior to the exam IMPRESSION ----- -Single living fetus with a gestational age of 36w 2d based on the reported dates. -cephalic presentation. -The EFW is 3007 g which is at the 64%. The abdominal circumference is at the 83%. -Unremarkable limited anatomy noted to extent of ultrasound views. -Bladder/3 VC view is suboptimally visualized. -The amniotic fluid is normal for gestational age. (AL of 13.6 cm, MVP of 5.5 cm) -The placenta is anterior Twice weekly testing is recommended. Thank you for allowing us to participate in the care of this patient. Procedure Note Miranda Kirkland MD - 06/12/2024 ST FOLLOW UP ----- Pat. Name:Sonu LAYNE Date:06/12/2024 7:27am Pat. NO: [id number] MD:MARIAN SCALES [facility]Shara Harris RDMS :1980Age:43 ----- INDICATION ----- Screening Follow-Up Advanced Maternal Age (AMA), Multigravida Maternal Obesity (BMI<40) Complicating Grand Multiparity Antepartum Complications, Other Specified CODING ----- Diagnoses Z3A.36: Weeks of gestation O09.43: Supervision of with grandmultiparity O99.213: Obesity complicating O09.523: Supervision of elderly multigravida Z36.3: Encounter for screening formalformations Z3A.36: Weeks of gestation O99.891: Other specified diseases and conditionscomplicating O09.43: Supervision of with grandmultiparity O99.213: Obesity complicating O09.523: Supervision of elderly multigravida Z36.2: Encounter for other screeningfollow-up Procedures 31267: Ultrasound, uterus, real time withimage documentation, follow up, transabdominal approach per fetus HISTORY ----- OB History 11. Para 10 T10L10 METHOD ----- Transabdominal ultrasound examination ----- Rey . Number of fetuses: 1 DATING ----- GA by prior [id number] w + 2 d PETRONA by prior assessment:07/08/2024 Ultrasound examination on:06/12/2024 GA by U/S based upon:AC, BPD, EFW, Femur, HC GA by U/S36 w + 5 d PETRONA by U/S:07/05/2024 Method of dating:Restore dating from previous exam Assigned:based on stated PETRONA, selected on 02/21/2024 Assigned GA36 w + 2 d Assigned PETRONA:07/08/2024 BIOMETRY ----- BPD 89.9 mm 36w 3d 64%Hadlock OFD 119.3 mm -/- 99%Qing HC 335.2 mm 38w 3d 71%Hadlock AC 332.7 mm 37w 1d 83%Hadlock Femur 68.2 mm 35w 0d 17%Hadlock HC / AC 1.01 44%Nicolaides Weight Calculation: EFW 3,007 g 36w 6d64% Hadlock EFW (lb,oz) 6 lb 10 oz EFW by Hadlock ([id number]) Head / Face / Neck Biometry: Manager Occupational 4.2mm Extremities / Bony Struc Biometry: FL / BPD 0.76 FL / HC 0.20 FL / AC 0.21 GENERAL EVALUATION ----- Cardiac activity present. FHR 155 bpm. movements: present.Presentation: cephalic Placenta: Placental site: anterior Umbilical cord: Cord vessels: 3 vessel cord. Insertion site: placentalinsertion: normal Amniotic fluid: Amount of AF: normal amount. MVP 5.5 cm. AL 13.6 cm. Q14.0 cm, Q2 2.0 cm, Q3 2.1 cm, Q4 5.5 cm ANATOMY ----- The following structures appear normal: Head / Neck Cranium. Midline falx. Heart / Thorax Diaphragm. Abdomen Stomach. Kidneys. The following structures could not be adequately visualized: Abdomen Bladder. GROWTH OVERVIEW ----- Exam date GA BPD (mm) HC (mm) AC (mm) FL(mm) HL (mm) EFW (g) 02/21/2024 20w 2d 47.7 56% 180.2 49% 169.9 90%35.6 76% 31.3 57% 427 95% 04/17/2024 28w 2d 73.3 74% 274.6 72% 257.9 87%53.6 38% 1,391 79% 05/11/2024 31w 5d 83.4 89% 308.3 83% 296.1 92%61.4 40% 2,136 83% 06/12/2024 36w 2d 89.9 64% 335.2 71% 332.7 83%68.2 17% 3,007 64% COMMENT ----- Patient's name and date of were verified by the weeder prior tothe exam IMPRESSION ----- -Single living fetus with a gestational age of 36w 2d based on thereported dates. -cephalic presentation. -The EFW is 3007 g which is at the 64%. The abdominal circumference is atthe 83%. -Unremarkable limited anatomy noted to extent of ultrasound views. -Bladder/3 VC view is suboptimally visualized. -The amniotic fluid is normal for gestational age. (AL of 13.6 cm, MVP of5.5 cm) -The placenta is anterior Twice weekly testing is recommended. Thank you for allowing us to participate in the care of this patient. us Dori Sandhu MD US ORDERABLES Final Result from Last 3 Months Insurance [facility] Care Teams Vessel Builder Relationship Specialty Start Date End Date Simone Martinez MD [address] [place] [id number] PCP - General Internal Medicine 03/03/16
--- OUTSIDE RECORDS SUMMARY | 2024-06-26 20:51 | XMS_ITS | Clinical Summary ---
Author Organization [facility] Address [address] [place] [address] Care Team Providers Care Convention Planner Name Role Phone Simone Martinez MD Primary Care Provider [phone] Source Comments [facility],non-owned Affiliates and Associated Physician Practices is amultiple site organization consisting of ambulatory clinics and hospital sitesin [place], [place], [place] and [place]. This disclosure is being madepursuant to the Care Everywhere program and may not contain all information available regarding this patient. Last updated 18.[facility] Allergies No known active allergies Active Problems [...] Health Maintenance Due Date Last Done Comments LIPID TESTING 1982 MAMMOGRAM 1982 PAP SMEAR 1982 HIV SCREENING 1997 HEPATITIS C SCREENING 08/27/2000 DTAP/TDAP/TD VACCINES (1 - Tdap) 2001 HEPATITIS B VACCINE (1 of 3 - 19+ 3-dose series) 2001 COVID-19 VACCINE (1 - 2023- season) 2023 INFLUENZA VACCINE (#1) 2023 , 02/06/2015, 04/01/2007, Additional history exists DEPRESSION SCREENING 04/19/2024 ZOSTER VACCINE (1 of 2) 2032 HIB VACCINE Aged Out No longer eligi ble based on patient's age to complete this topic HPV VACCINE Aged Out No longer eligi ble based on patient's age to complete this topic MENINGOCOCCAL (Group B) VACCINE Aged Out No longer eligible based on patient's age to complete this topic MENINGOCOCCAL VACCINE Aged Out No baylee roxanna eligible based on patient's age to complete this topic PNEUMOCOCCAL VACCINE Aged Out No long er eligible based on patient's age to complete this topic Care Teams Convention Planner Relationship Specialty Start Date End Date Simone Martinez MD [address] [place] [address] PCP - General 08/26/21
--- OUTSIDE RECORDS SUMMARY | 2024-06-26 20:51 | XMS_ITS | Clinical Summary ---
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 Never 08/13/2020 Average Number of Drinks Not on file 021 Frequency of Binge Drinking Not on file 07/19 Comments No Sex and Gender Information Value Date Recorded Sex Assigned at Not on file Legal Sex Female 6:13 PM CDT Gender Identity Not on file Sexual Orientation Not on file Last Filed Vital Signs Vital Sign Reading Time Taken Comments Blood Pressure 148/109 08/23/2023 12:26 AM CDT Pulse 76 08/23/2023 12:26 AM CDT Temperature 36.9 C (98.4 F) 08/23/2023 12:26 AM CDT Respiratory Rate 18 08/23/2023 12:26 AM CDT Oxygen Saturation 96% 08/23/2023 12:26 AM CDT Inhaled Oxygen Concentration - - Weight 97.5 kg (215 lb) 08/23/2023 12:26 AM CDT Height 180.3 cm (5' 11 ) 08/23/2023 12:26 AM CDT Body Mass Index 29.99 08/23/2023 12:26 AM CDT Plan of Treatment Health Maintenance Due Date Last Done Comments Cervical Cancer Screening Pa p Smear (Age 30 to 64) Every 3 Years 1982 Annual Physical 1985 Hepatitis C 2000 DTaP, Tdap and Td Vaccines ( 1 - Tdap) 2001 Hepatitis B Vaccines (1 of 3 - 19+ 3-dose series) 2001 Cervical Cancer Screening Pa p with HPV Testing (Age 30 to 64) Every 5 Years 2012 Cervical Cancer Screening with HPV 2012 Mammogram Screening 2022 COVID-19 Vaccine (2023-2 5 season) 2023 Influenza Adult (#1) 2024 HPV Vaccines Aged Out No longer eligi ble based on patient's age to complete this topic Meningococcal B Vaccine Aged Out No l onger eligible based on patient's age to complete this topic Meningococcal Vaccine Aged Out No baylee roxanna eligible based on patient's age to complete this topic Pneumococcal Vaccine: Pediat rics (0 to 5 Years) and At-Risk Patients (6 to 64 Years) Aged Out No longer eligible b ased on patient's age to complete this topic RSV Immunizations Under 20 Months Aged Out No longer eligible based on patient's age to complete this topic Medical Devices Implanted Type Area Network Coordinator Device Identifier Shelf Expiration Date Model / Serial / Lot Knotless Fiber Mitch With #2 Suture Implanted:Qty: 1 on 09/05/2020 by Caden Hanson MD at [facility] Right: Shoulder 04/18/2025 [id number] / / [id number] Knotless Fiber Mitch With #2 Suture Implanted:Qty: 1 on 09/05/2020 by Caden Hanson MD at [facility] Right: Shoulder 04/18/2025 [id number] / / [id number] Knotless Fiber Mitch Implanted:Qty: 1 on 09/05/2020 by Caden Hanson MD at [facility] Right: Shoulder 04/18/2025 [id number] / / [id number] Insurance Care Teams Acidizer Helper Relationship Specialty Start Date End Date Simone Martinez MD [address] [place] [address] PCP - General INTERNAL MEDICINE 08/13/20
--- OUTSIDE RECORDS SUMMARY | 2024-06-26 20:51 | XMS_ITS | Encounter Summary ---
Author Organization [facility] Address [address] [place] [address] Care Team Providers Care Program Support Specialist Name Role Phone Simone Martinez MD Primary Care Provider [phone] Encounter Details Date Type Department Care Team (Late st Contact Info) Description 06/24/2024 External Device Data STL ABSTRACTION Provider, Abstract NO ADDRESS ON FILE Social History Tobacco Use Types Packs/Day Years Used Date Smoking Tobacco: Never Assessed Comments Unknown Sex and Gender Information Value Date Recorded Sex Assigned at Not on file Legal Sex Female 2:09 PM CDT Gender Identity Not on file Sexual Orientation Not on file documented as of this encounter Plan of Treatment Not on file documented as of this encounter Visit Diagnoses Not on filedocumented in this encounter Care Teams Program Support Specialist Relationship Specialty Start Date End Date Simone Martinez MD [address] [place] [address] PCP - General Internal Medicine 03/03/16 documented as of this encounter
--- OUTSIDE RECORDS SUMMARY | 2024-06-26 20:51 | XMS_ITS | Continuity of Care Document ---
Author Organization [facility] Address [address] [place] [address] Phone Care Team Providers Care Favor Maker Name Role Phone Unavailable Unavailable Unavailable Advance Directives Directive Yes / No Effective Date File Name No Information Encounters Encounter Description Practice Location Reason(s) For Visit Diagnoses Date Provider Providers Copied on Encounter [facility], [address], [place], [place], [id number], tel:[phone] [facility] No Information No Information Referring Provider: ELIZA To, [address], [place], [address]. tel:[phone] Family History Family Member Type Diagnosis Age At Onset No Information Payers Payer name Insurance type Covered democrat ID Authoriza dora(s) [facility] [id number] Social History Type Description Quantity Date Captured Comments Sex Female Smoking Status No Information Chief Complaint And Reason For Visit No Information History Of Present Illness Encounter Date Complaint History Of Prese nt Illness No Information Instructions Date Instruction Additional Infor mation No Information Assessments Type Assessment Date No Information
--- OUTSIDE RECORDS SUMMARY | 2024-06-26 20:51 | XMS_ITS | Patient Health Summary ---
Author Organization [facility] Address [address] [place] [address] Care Team Providers Care Flight Engineer Helicopter Name Role Phone Simone Martinez MD Primary Care Provider [phone] Note from [facility],non-owned Affiliates and Associated Physician Practices is amultiple site organization consisting of ambulatory clinics and hospital sitesin [place], [place], [place] and [place]. This disclosure is being madepursuant to the Care Everywhere program and may not contain all information available regarding this patient. 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 04/07/2021 Encounter for anatomic survey 04/04/2021 Supervision of high-risk of elderly mu ltigravida 04/04/2021 24 weeks gestation of 04/04/2021 Social History Tobacco Use Types Packs/Day Years Used Date Smoking Tobacco: Never Smokeless Tobacco: Never Alcohol Use Standard Drinks/Week Comments Not Currently 0 (1 standard drink = 0.6 oz pur e alcohol) Sex and Gender Information Value Date Recorded Sex Assigned at Not on file Gender Identity Not on file Sexual Orientation Not on file Procedures * SONOGRAM - COMPLETE(Performed 07/21/2021) Performed for Encounter for repeat ultrasound of pyelectasis, antepartum, single or unspecified fetus (HCC) * SONOGRAM - COMPLETE(Performed 06/20/2021) Performed for Encounter for repeat ultrasound of pyelectasis, antepartum, single or unspecified fetus (HCC) * SONOGRAM - COMPLETE(Performed 05/09/2021) Performed for Anti-E 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 Anatomical Region Laterality Modality Other 07/21/2021 8:36 AM CDT Narrative 07/21/2021 9:41 AM CDT [facility] PHONE: FAX: Pat. Name: ROSALVA LAYNE Pat. No: [id number] Study Date: 07/21/2021 8:36am , Age: 05 1980, 40 Pregnancies: 10, Para 9 Height: 71 in Weight: 205 lb LMP: 11/22/2020 GA by LMP: 34w3d GA by Base: 34w3d PETRONA: 08/29/2021 GA by US: 35w5d PETRONA: 08/20/2021 GA Selected: 34w3d (LMP) PETRONA: 08/29/2021 Referring MD: Cj Omalley MD Construction Secretary: Kathy Mcdonald RDMS CPT4: 94851 BMI: 28.59 Hist/Ind: Reassess kidneys - UTD A1 of the right kidney on 05/09/21 Anti Rh'Big E' <1:1 AMA G2 Turners Syndrome Complete anatomic survey Normal GCT (per patient) MEASUREMENTS & AGE GROWTH EVALUATION Measurement GA Range Srce %for GA Ratios ----- ---- ------- BPD 8.9 cm 36w1d (03m2b-67u1o) Hadl BPD 90% FL/BPD 0.76 (0.71 - 0.87) HC 32.1 cm 36w2d (30o4d-33z6o) Hadl HC 62% FL/AC 0.20 (0.20 - 0.24* AC 34.7 cm 38w4d (70u3w-55f2g) Hadl AC >99 HC/AC 0.93 (0.94 - 1.13* FL 6.8 cm 35w0d (44p3k-93l5o) Hadl FL 55% CI 0.80 (0.70 - 0.86) HL 6.1 cm 35w1d (88z5h-87v9y) Renny HL 63% GA for sonogram 35w5d (89w8a-80i1b) Weight Estimate: based on (BPD,HC,AC,FL) Hadlock Weight: 3152 gm (2692-3612gm) Had : 6lbs, 15oz Normal: 2464 gm (1848-3080gm) Had Wt% >97 for 34w3d Heart Rate: 157 bpm Amniotic Fluid Index: 12.0cm (08.0-24.8) Q1: 4.9cm Q2: 1.9cm Q3: 1.9cm Q4: 3.4cm EVAL, PLACENTA Presentation: cephalic Placenta: anterior Heart Rate: 157 bpm Amniotic Fluid Volume: normal Anatomy!Normal!Abnormal!Suboptimal!Prev. Seen!Comments Diaphragm ! x ! ! ! ! Stomach ! x ! ! ! ! Kidneys ! x ! ! ! !Right AP = 0.73 cm, Left AP = 0.62 cm Bladder ! x ! ! ! ! CLINICAL SUMMARY Study Number: 4 A single fetus is seen in cephalic presentation. The measurements today are consistent with greater than expected size for the PETRONA provided. The PETRONA selected is based on her LMP and a prior ultrasound examination. The amniotic fluid volume is normal. IMPRESSION: Single, live, intrauterine at 34w3d Amniotic fluid volume: within normal limits size is large for gestational age RECOMMEND: Ultrasound in 4 weeks for growth assessment and to reassess kidneys Thank you for allowing us the opportunity to care for your patient. Manas Peña MD <Electronic Signature> 07/21/2021 09:37am Mike Vann MD [facility] ORDERABLES Care Teams Flight Engineer Helicopter Relationship Specialty Start Date End Date Simone Martinez MD [address] [place] [address] PCP - General 08/26/21
[2024-06-26 21:00] VITALS: BP 120/75; PULSE 88
[2024-06-26] MEDS: ACETAMINOPHEN 500 MG TABLET 1000 MG PO (21:38)
[2024-06-26 22:27] VITALS: BP 108/63; PULSE 83
--- NOTE | 2024-06-26 22:28 | OBADM ---
This patient, Eunice Robert, admitted to the OB room Labor/Delivery/Recovery 105 for observation. Patient/family oriented to hospital policies and general routines including ID bracelet, bed and alarms, visiting hours, pain management, procedures, bathroom and other care routines, personal items, smoking policy, room service/diet, and visiting hours. Patient/Family are encouraged to report perceived risks to care and to ask questions if they do not understand what they are told or what they should do.
[2024-06-26 22:31] VITALS: BMI 35.6
== END 2024-06-26 22:39 | disposition home or self-care (01) ==
PROVIDERS: Admitting Provider Obstetrics & Gynecology Gynecology; PCP Internal Medicine; Visit Provider Obstetrics & Gynecology Gynecology
DX: O47.1 False labor at or after 37 completed weeks of gestation (principal); Z3A.38 38 weeks gestation of pregnancy
CPT/HCPCS: A9270; G0378; G0379

== ENCOUNTER 2024-07-07 05:42 | Inpatient (IN) | payer OTHER, SELFPAY ==
[2024-07-07] VITALS (38 sets, daily range): BP systolic 109–149; BP diastolic 53–101; PULSE 72–106; RESP 18; TEMP 36.3–36.8; O2SAT 99; BMI 35.3
--- OUTSIDE RECORDS SUMMARY | 2024-07-07 05:49 | XMS_ITS | Clinical Summary ---
Author Organization [facility] Address [address] [place] [address] Phone Care Team Providers Care Service Delivery Director Name Role Phone Unavailable Unavailable Unavailable Reason for Visit and Chief Complaint visit for: OB referral Plan of Treatment - - Last Documented On 05/01/2013 5:01PM ; [facility] Referral: Hose Tester Instructions: Please refer to Dr. Goode - Last Documented On 05/01/2013 5:01PM ; [facility] Referrals To Diagnosis Hose Tester [facility]REG STATE, INCI DENTAL Note: Please refer to Dr. Namrata malik Last Documented On 4 11:27AM ; [facility] Assessments Includes: Assessments from this encounter Findings - - Last Documented On 05/01/2013 5:01PM ; [facility] Medical Equipment - Implanted Devices Includes: Current Devices No Medical Equipment Recorded Medications Administered Includes: Administered Medications from this encounter No Administered Medications Recorded Vital Signs Includes: Vital Signs from this encounter Vital Name 04/21/2013 09:06A Blood Pressure Sitting L 132/68 Pulse Rate-Sitting (bpm) 76 Respiration Rate (breaths/min) 12 Temp-Tympanic (F) 96.2 Weight (lb) 225.96791 Last Documented: On 04/21/2013 9:07AM ; [facility] Results Includes: Results discussed during this encounter No Results Recorded For Specified Dates History of Present Illness Includes: History of Present Illness from this encounter HPI New pt. Pt states she feels healthy and well today with no chief complaint. Pt switched to [facility] effective Apr 19 and wishes to establish care. Pt is 32 weeks with [id number]. All deliveries vaginal with no complications. Pt is on vitamins and has been seeing Dr. Monet. Pt wishes to see Dr. Omalley for delivery and request referral. Social History No Social History Recorded - Smoking Status Unknown Procedures and Surgical History Includes: Procedures from this encounter Procedures Code Diagnosis Performing Provider Service L ocation Service Date plan of care reviewed and agreed to Last Documented On 4 4:58PM ; [facility] Clinical summary provided to patient Last Documented On 4 4:58PM ; [facility] Medical History Includes: Medical History addressed during this encounter No Medical History Recorded Family History Includes: Family History addressed during this encounter No Family History Recorded Review of Systems Includes: Review of Systems from this encounter Systemic: No fever. Head: No headache. Neck: No neck pain. Eyes: No vision problems. Otolaryngeal: No earache. Breasts: No pain in breast. Cardiovascular: No chest pain or discomfort. Pulmonary: No dyspnea. Gastrointestinal: Normal appetite and no abdominal pain. Genitourinary: No dysuria. Endocrine: No excessive sweating. Musculoskeletal: No localized joint pain. Neurological: No dizziness. Psychological: No sleep disturbances. Skin: No pruritus. Mental Status Includes: Mental Status from this encounter No Mental Status Recorded Functional Status Includes: Functional Status from this encounter No Functional Status Recorded Physical Exam Includes: Physical Exam from this encounter Encounters Encounter Provider Location Date Check-In Time Check-Out Time Diagnosis NEW PATIENT VISIT VERONICA ANDRES PA-C [facility] 04/21/19 14 8:27AM 9:11AM Clinical Notes Includes: Clinical Notes from this encounter No Clinical Notes Recorded
--- OUTSIDE RECORDS SUMMARY | 2024-07-07 05:49 | XMS_ITS | Clinical Summary ---
Author Organization [facility] Address [address] [place] [address] Care Team Providers Care Clinical Programmer Name Role Phone Simone Martinez MD Primary Care Provider [phone] Source Comments [facility],non-owned Affiliates and Associated Physician Practices is amultiple site organization consisting of ambulatory clinics and hospital sitesin [place], [place], [place] and [place]. This disclosure is being madepursuant to the Care Everywhere program and may not contain all information available regarding this patient. Last updated 18.[facility] Allergies No known active allergies Active Problems [...] complete this topic MENINGOCOCCAL (Group B) VACCINE SHARED DECISION-MAKING Aged Out No longer eligible based on patient's age to complete this topic MENINGOCOCCAL GROUPS A/C/Y/W VACCINE Aged Out No longer eligible based on patient's age to complete this topic PNEUMOCOCCAL VACCINE Aged Out No long er eligible based on patient's age to complete this topic Care Teams Clinical Programmer Relationship Specialty Start Date End Date Simone Martinez MD [address] [place], [place] [id number] [facility] - General 08/26/21
--- OUTSIDE RECORDS SUMMARY | 2024-07-07 05:49 | XMS_ITS | Continuity of Care Document ---
Author Organization [facility] Address [address] [place] [address] Phone Care Team Providers Care Sustainable Communities Designer Name Role Phone Unavailable Unavailable Unavailable Advance Directives Directive Yes / No Effective Date File Name No Information Encounters Encounter Description Practice Location Reason(s) For Visit Diagnoses Date Provider Providers Copied on Encounter [facility], [address], [place], [place], [id number], tel:[phone] [facility] No Information No Information Referring Provider: ELIZA To, [address], [place], [address]. tel:[phone] Family History Family Member Type Diagnosis Age At Onset No Information Payers Payer name Insurance type Covered alliance party ID Authoriza dora(s) [facility] [id number] Social History Type Description Quantity Date Captured Comments Sex Female Smoking Status No Information Chief Complaint And Reason For Visit No Information History Of Present Illness Encounter Date Complaint History Of Prese nt Illness No Information Instructions Date Instruction Additional Infor mation No Information Assessments Type Assessment Date No Information
--- OUTSIDE RECORDS SUMMARY | 2024-07-07 05:49 | XMS_ITS ---
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 Namrata malik Last Documented On 4 11:27AM ; [facility] Assessments Includes: Assessments for all patient encounters Findings Encounter Date NEW PATIENT VISIT with VERONICA PAREDES PA-C 04/21/2013 Last Documented On 4 5:01PM ; [facility] Medical Equipment - Implanted Devices Includes: Current and historical Devices No Medical Equipment Recorded Medications Administered Includes: Administered Medications in patient's chart No Administered Medications Recorded Results Includes: Results from 07/08/2023 through 07/07/2024 No Results Recorded For Specified Dates History of Present Illness History of Present Illness not supported for this document type No History of Present Illness Recorded Social History Description Last Updated Currently 04/25/2013 Last Documented On 4 11:17AM ; [facility] No consumption of alcohol 04/25/2013 Last Documented On 4 11:17AM ; [facility] No tobacco use 04/25/2013 Last Documented On 4 11:17AM ; [facility] Not using drugs 04/25/2013 Last Documented On 4 11:17AM ; [facility] Occupation [facility] [employer] 04/25/2013 Last Documented On 4 11:17AM ; [facility] Smoking Status Unknown Procedures and Surgical History Surgical History Last Updated History of cholecystectomy 11/2004 Last Documented On 4 11:17AM ; [facility] History of tonsillectomy 03/1990 014 Last Documented On 4 11:17AM ; [facility] Medical History Includes: Medical History in patient's chart No Medical History Recorded Family History Includes: Family History in patient's chart Description Last Updated Family history of cancer 04/25/2013 Last Documented On 4 11:17AM ; [facility] Family history of diabetes mellitus 10/2013 Last Documented On 4 11:17AM ; [facility] Family history of heart disease 04/25/19 Last Documented On 4 11:17AM ; [facility] Father 52 years old HL 04/25/2013 Last Documented On 4 11:17AM ; [facility] Maternal grandfather is HTN 10/2013 Last Documented On 4 11:17AM ; [facility] Maternal grandmother is CORY ON'K-[id number]-VQLPCGCEA-HTN 04/25/2013 Last Documented On 4 11:17AM ; [facility] Mother 53 years old [place]-AGE 5 0 ~SJOGREN'S SYNDROME ~FIBROID CYST OF UTERUS-HYST 04/25/2013 Last Documented On 4 11:17AM ; [facility] Paternal grandfather is PULMONA RY FIBROSIS-MULTIPLE MYELOMA-CHF 04/25/2013 Last Documented On 4 11:17AM ; [facility] Review of Systems Review of Systems not supported for this document type No Review of Systems Recorded Mental Status No Mental Status Recorded Functional Status No Functional Status Recorded Physical Exam Physical Exam not supported for this document type No Physical Exam Recorded Clinical Notes Includes: Signed Clinical Notes starting from 05/08/2022 No Clinical Notes Recorded
--- OUTSIDE RECORDS SUMMARY | 2024-07-07 05:49 | XMS_ITS ---
Care Plan - [facility] Created on: July 07, 2024 ROSALVA LAYNE : 1980 Sex: Female Author Organization [facility] Address [address] [place] [address] Phone Care Team Providers Care Lead Software Engineer Name Role Phone Unavailable Unavailable Unavailable
--- OUTSIDE RECORDS SUMMARY | 2024-07-07 05:49 | XMS_ITS | Clinical Summary ---
Author Organization [facility] Address [address] [place] [address] Phone Care Team Providers Care Ultrasonic Seaming Machine Operator Name Role Phone Simone Martinez MD Primary Care Provider Encounters Date Type Department Care Team Description 07/05/2024 External Device Data STL ABSTRACTION Provider, Abstract 06/27/2024 External Device Data STL ABSTRACTION Provider, Abstract 06/27/2024 External Device Data STL ABSTRACTION Provider, Abstract 06/24/2024 External Device Data STL ABSTRACTION Provider, Abstract 06/23/2024 External Device Data STL ABSTRACTION Provider, Abstract 06/20/2024 External Device Data STL ABSTRACTION Provider, Abstract 06/12/2024 7:21 AM CEMENT MIXER DRIVER - 06/12/2024 11:59 PM CEMENT MIXER DRIVER Hospital Encounter [facility] [address] [place] [phone] Dori Sandhu MD Discharge Disposition: Home or Self Care 06/12/2024 Abstract [facility] Maternal and Medicine - Medical [place] [address] [place] [address] Eileen Dalal 06/06/2024 External Device Data STL ABSTRACTION Provider, Abstract 05/30/2024 External Device Data STL ABSTRACTION Provider, Abstract 05/11/2024 8:57 AM CEMENT MIXER DRIVER - 05/11/2024 11:59 PM CEMENT MIXER DRIVER Hospital Encounter [facility] [address] [place] [address] Dori Sandhu MD Discharge Disposition: Home or Self Care 05/11/2024 External Device Data STL ABSTRACTION Provider, Abstract 05/09/2024 External Device Data STL ABSTRACTION Provider, Abstract 05/02/2024 External Device Data STL ABSTRACTION Provider, Abstract 04/17/2024 9:20 AM CEMENT MIXER DRIVER - 04/17/2024 11:59 PM CEMENT MIXER DRIVER Hospital Encounter [facility] Maternal and Health [facility] 20[address] [place] [address] Rahul Coley MD Mathur, Manish, [...] of 3 - 19+ 3-dose series) 2001 PAP SMEAR 2012 11/28/2007 BREAST CANCER SCREENING 2022 INFLUENZA VACCINE (#1) 2023 HPV VACCINES Aged Out No longer eligi ble based on patient's age to complete this topic Procedures Procedure Name Priority Date/Time Associated Diagnosis Comments US OB FOLLOW UP PER FETUS Routine 06/12/2024 7:47 AM CEMENT MIXER DRIVER Multigravida of advanced maternal age in second trimester US OB FOLLOW UP PER FETUS Routine 05/11/2024 9:46 AM CEMENT MIXER DRIVER Multigravida of advanced maternal age in second trimester US OB FOLLOW UP PER FETUS Routine 04/17/2024 9:43 AM CEMENT MIXER DRIVER Multigravida of advanced maternal age in second trimester from Last 3 Months Results * US OB FOLLOW UP PER FETUS (06/12/2024 7:47 AM CEMENT MIXER DRIVER) Only the most recent of3 resultswithin the time period is included. Anatomical Region Laterality Modality Pelvis Ultrasound 06/12/2024 7:27 AM CEMENT MIXER DRIVER Narrative 06/12/2024 8:31 AM CEMENT MIXER DRIVER STL FOLLOW UP ----- Pat. Name: ROSALVA LAYNE Study Date: 06/12/2024 7:27am Pat. NO: [id number] Referring MD: MARIAN SCALES MD Site: [facility]: Shara Harris RDMS : 1980 Age: 43 [...] Z36.2: Encounter for other screening follow-up Procedures 90635: Ultrasound, uterus, real time with image documentation, [...] 6 lb 10 oz EFW by Hadlock ([id number]) Head / Face / Neck Biometry: Collection Clerk 4.2 mm Extremities / Bony Struc Biometry: [...] and date of were verified by the director instrumentation prior to the exam IMPRESSION ----- -Single [...] Procedure Note Miranda Kirkland MD - 06/12/2024 STL FOLLOW UP ----- Pat. Name:Sonu LAYNE Date:06/12/2024 7:27am Pat. NO: [id number] MD:MARIAN SCALES MD Site:[facility] Souther:Shara Harris RDMS :1980Age:43 ----- INDICATION ----- Screening [...] multigravida Z36.2: Encounter for other screeningfollow-up Procedures 12664: Ultrasound, uterus, real time withimage documentation, follow up, transabdominal approach per fetus HISTORY ----- OB History 11. Para 10 T10L10 METHOD ----- Transabdominal ultrasound examination ----- Rey . Number of fetuses: 1 DATING ----- GA by prior [id number] w + 2 d PETRONA by prior [...] 6 lb 10 oz EFW by Hadlock ([id number]) Head / Face / Neck Biometry: Collection Clerk 4.2mm Extremities / Bony Struc Biometry: FL [...] and date of were verified by the director instrumentation prior tothe exam IMPRESSION ----- -Single living [...] Final Result from Last 3 Months Insurance [facility] Care Teams Ultrasonic Seaming Machine Operator Relationship Specialty Start Date End Date Simone Martinez MD [address] [place] [address] PCP - General Internal Medicine 03/03/16
--- OUTSIDE RECORDS SUMMARY | 2024-07-07 05:49 | XMS_ITS | Clinical Summary ---
Author Organization [facility] Address [address] [place] [address] Care Team Providers Care Nutrition Teacher Name Role Phone Simone Martinez MD Primary Care Provider [phone] Allergies No known active allergies Medications No [...] this topic Medical Devices Implanted Type Area Sales Correspondent Device Identifier Shelf Expiration Date Model / Serial / Lot Knotless Fiber Mitch With #2 Suture Implanted:Qty: 1 on 09/05/2020 by Caden Hanson MD at [facility] Right: Shoulder 04/18/2025 [id number] / / [id number] Knotless Fiber Mitch With #2 Suture Implanted:Qty: 1 on 09/05/2020 by Caden Hanson MD at [facility] Right: Shoulder 04/18/2025 [id number] / / [id number] Knotless Fiber Mitch Implanted:Qty: 1 on 09/05/2020 by Caden Hanson MD at [facility] Right: Shoulder 04/18/2025 [id number] / / [id number] Insurance Care Teams Nutrition Teacher Relationship Specialty Start Date End Date Simone Martinez MD [address] [place] [id number] PCP - General INTERNAL MEDICINE 08/13/20
--- OUTSIDE RECORDS SUMMARY | 2024-07-07 05:49 | XMS_ITS | Clinical Summary ---
Author Organization [facility] Address [address] [place] [address] Phone Care Team Providers Care Experimental Worker Name Role Phone Unavailable Unavailable Unavailable Reason for Visit and Chief Complaint CHART UPDATE Plan of Treatment No Plan of Treatment Recorded Assessments Includes: Assessments from this encounter No Assessments Recorded Medical Equipment - Implanted Devices Includes: Current Devices No Medical Equipment Recorded Medications Administered Includes: Administered Medications from this encounter No Administered Medications Recorded Results Includes: Results discussed during this encounter No Results Recorded For Specified Dates History of Present Illness Includes: History of Present Illness from this encounter No History of Present Illness Recorded Social History Description Last Updated Currently 04/25/2013 Last Documented On 4 11:17AM ; [facility] No consumption of alcohol 04/25/2013 Last Documented On 4 11:17AM ; [facility] No tobacco use 04/25/2013 Last Documented On 4 11:17AM ; [facility] Not using drugs 04/25/2013 Last Documented On 4 11:17AM ; [facility] Occupation [facility] [employer] 04/25/2013 Last Documented On 4 11:17AM ; [facility] Smoking Status Unknown Procedures and Surgical History Surgical History Last Updated History of cholecystectomy 11/2004 Last Documented On 4 11:17AM ; [facility] History of tonsillectomy 03/1990 014 Last Documented On 4 11:17AM ; [facility] Medical History Includes: Medical History addressed during this encounter No Medical History Recorded Family History Includes: Family History addressed during this encounter Description Last Updated Family history of cancer 04/25/2013 Last Documented On 4 11:17AM ; [facility] Family history of diabetes mellitus 10/2013 Last Documented On 4 11:17AM ; [facility] Family history of heart disease 04/25/19 14 Last Documented On 4 11:17AM ; [facility] Father 52 years old HL 04/25/2013 Last Documented On 4 11:17AM ; [facility] Maternal grandfather is HTN 10/2013 Last Documented On 4 11:17AM ; [facility] Maternal grandmother is CORY [id number] 04/25/2013 Last Documented On 4 11:17AM ; [facility] Mother 53 years old [place]-AGE 5 0 ~SJOGREN'S SYNDROME ~FIBROID CYST OF UTERUS-HYST 04/25/2013 Last Documented On 4 11:17AM ; [facility] Paternal grandfather is PULMONA RY FIBROSIS-MULTIPLE MYELOMA-CHF 04/25/2013 Last Documented On 4 11:17AM ; [facility] Review of Systems Includes: Review of Systems from this encounter No Review of Systems Recorded Mental Status Includes: Mental Status from this encounter No Mental Status Recorded Functional Status Includes: Functional Status from this encounter No Functional Status Recorded Physical Exam Includes: Physical Exam from this encounter No Physical Exam Recorded Encounters Encounter Provider Location Date Check-In Time Check-Out Time Diagnosis CHART UPDATE VERONICA ANDRES PA-C [facility] 04/25/19 14 11:07AM 11:59PM Clinical Notes Includes: Clinical Notes from this encounter No Clinical Notes Recorded
[2024-07-07 06:59] LABS: Basophils Percent Auto 0.3 % (0.2-1.2); Eosinophils Absolute Auto 0.1 K/mm3 (0-0.3); Hematocrit 37.6 % (37.0-47.0); Hemoglobin 12.4 g/dL (12.0-15.0); Immature Granulocyte Absolute 0.06 K/mm3 (0.00-0.031); Immature Granulocyte Percent A 0.5 % (0-0.5); Lymphocytes Absolute Auto 1.82 K/mm3 (0.9-3.2); Lymphocytes Percent Auto 15.5 % (18.3-44.2); Mean Corpuscular Hemoglobin 30.2 pg (26-34); Mean Corpuscular Volume 91.5 fl (80-100); Monocytes Absolute Auto 0.6 K/mm3 (0.1-0.6); Monocytes Percent Auto 5.2 % (2.6-8.5); Neutrophils Absolute Auto 9.1 K/mm3 (1.3-6.7); Neutrophils Percent Auto 77.5 % (45.5-73.1); Platelet Count Result 262 k/mm3 (150-375); Red Blood Count 4.11 M/mm3 (4.2-5.4); Red Cell Distribution Width 13.7 % (11.5-14.5); White Blood Count 11.8 K/mm3 (4.5-10.0)
--- NOTE | 2024-07-07 07:03 | LDADM ---
This patient, Eunice Robert, was admitted to Labor/Delivery/Recovery 104 on 07/07/24 at 05:42. Plans for labor, pain management and were discussed with patient. Patient/family oriented to hospital policies and general routines including ID bracelet, bed and alarms, visiting hours, pain management, procedures, bathroom and other care routines, personal items, smoking policy, room service/diet and guest tray routines, infant security routines, and visiting hours. Patient/Family are encouraged to report perceived risks to care and to ask questions if they do not understand what they are told or what they should do. See OBIX for further documentation.
[2024-07-07 07:48] LABS: HIV 1/2 Ab P24 Ag Result Negative (Negative)
[2024-07-07 07:54] LABS: Syphilis IgG/IgM Antibody Negative (Negative)
[2024-07-07] MEDS: OXYTOCIN 30 UNITS/NS 500 ML 30 UNITS/500 ML BAG IV CONT (10:20)
[2024-07-07] MEDS: LACTATED RINGERS 1,000 ML 125 ML IV CONT (10:20)
--- NOTE | 2024-07-07 11:30 | WPDOBADMIT ---
Obstetrics - Admit Note Admission Note: Seen at 0810 record reviewed. No pertinent additions to the history and/or any subsequent changes in the physical findings that are not consistent with the expected course of the were found. Additions to the history and/or subsequent changes in the physical findings follow. Here for MIL. Cervix 4/50/-2 AROM with clear fluid. If no labor by 10 am, plan to augment with pitocin.
[2024-07-07] MEDS: METHYLERGONOVINE MALEATE 0.2 MG/ML VIAL IM (16:30)
--- NOTE | 2024-07-07 16:39 | PM.OBPRVD ---
OB - Vaginal Delivery Note Procedure Delivery date: 07/07/24 Events: Other (Grandmultip) Induction method: AROM and Per Pitocin Protocol Delivery monitor: External FHT and External Uterine Route of delivery: Episiotomy description: None Laceration Description: None Specimen: No Quantitative Blood Loss (ml): 50 Anesthesia type: None Disposition: Floor Complications: No immediate complications Baby Date of : 07/07/24 Gestational Age by Date: 39 Infant gender: Female presentation: vertex position: Right Occiput Anterior Placenta delivery description: Spontaneous Cord Vessel Description: 3 Vessels, Nuchal Cord and Delayed Cord Clamping score one minute: 9 score five minutes: 9
--- NOTE | 2024-07-07 16:40 | PM.OBDSVD ---
DS: Admitting Diagnosis Discharge Date 07/09/2024 <Manas Holden MD - Last Filed: 07/09/24 08:43> Admitting Diagnosis IUP 39 grandmultip AMA <Sakshi Darling MD - Last Filed: 07/10/24 09:28> DS: Discharge Diagnosis Discharge Diagnosis (1) (normal spontaneous vaginal delivery): Code(s): O80 - Encounter for full-term uncomplicated delivery <Sakshi Darling MD - Last Filed: 07/10/24 09:28> Status: Acute <Sakshi Darling MD - Last Filed: 07/10/24 09:28> OB - DS: Summary OB Procedures : NST and Ultrasound <Sakshi Darling MD - Last Filed: 07/10/24 09:28> OB Procedures Intrapartum: Spontaneous Vag Delivery <Sakshi Darling MD - Last Filed: 07/10/24 09:28> OB Procedures: : None <Sakshi Darling MD - Last Filed: 07/10/24 09:28> Peripartum Data Delivery Method: Natural Vaginal <Sakshi Darling MD - Last Filed: 07/10/24 09:28> Laceration Description: None <Sakshi Darling MD - Last Filed: 07/10/24 09:28> Episiotomy description: None <Sakshi Darling MD - Last Filed: 07/10/24 09:28> complications: none <Sakshi Darling MD - Last Filed: 07/10/24 09:28> Status at Discharge Functional status at discharge: independent ambulation <Sakshi Darling MD - Last Filed: 07/10/24 09:28> Overall status at discharge: patient is progressing back to baseline <Sakshi Darling MD - Last Filed: 07/10/24 09:28> Time Spent with Patient Time attestation: Total time spent providing and/or coordinating discharge services: <Sakshi Darling MD - Last Filed: 07/10/24 09:28> DS: Data Data Completed and Pending Labs on day of discharge: Labs from last hours 07/07/24 06:49 WBC 11.8 H RBC 4.11 L Hgb 12.4 Hct 37.6 MCV 91.5 MCH 30.2 MCHC 33.0 RDW 13.7 Plt Count 262 MPV 10.0 Immature Gran % (Auto) 0.5 Neut % (Auto) 77.5 H Lymph % (Auto) 15.5 L [place] % (Auto) 5.2 Eos % (Auto) 1.0 Baso % (Auto) 0.3 Lymph # (Auto) 1.82 [place] # (Auto) 0.6 Eos # (Auto) 0.1 Baso # (Auto) 0.0 Abs Immat Gran (auto) 0.06 H Absolute Neuts (auto) 9.1 H Absolute Nucleated RBC 0.000 Nucleated RBC % 0.0 Syphilis IgG/IgM Ab Negative HIV 1&2 Ab/P24 Ag 4thGn Negative Blood Type A Positive Antibody Screen Negative <Sakshi Darling MD - Last Filed: 07/10/24 09:28> Discharge Plan Discharge Attending physician on discharge: Sakshi Darling <Sakshi Darling MD - Last Filed: 07/10/24 09:28> Sakshi Darling <Manas Holden MD - Last Filed: 07/09/24 08:43> Discharging Clinician: Manas Webb <Sakshi Darling MD - Last Filed: 07/10/24 09:28> Manas Webb <Manas Holden MD - Last Filed: 07/09/24 08:43> Anticipated Discharge Date/Time: 07/09/24 16:42 <Sakshi Darling MD - Last Filed: 07/10/24 09:28> Patient Disposition: Home, Self-Care <Sakshi Darling MD - Last Filed: 07/10/24 09:28> Activity: may shower and pelvic rest <Sakshi Darling MD - Last Filed: 07/10/24 09:28> may shower and pelvic rest <Manas Holden MD - Last Filed: 07/09/24 08:43> Diet: regular <Sakshi Darling MD - Last Filed: 07/10/24 09:28> regular <Manas Holden MD - Last Filed: 07/09/24 08:43> Discharge Instructions: Education: Mom and Baby Guide Given to: Mother Follow-Up: Call your delivering provider's office for an appointment to be seen. Mom and baby should come to the [facility] for the follow-up appointment. Appointment Date/Time: July 10, 2024 at 8:00 am What to expect at your follow-up visit: Physical Assessment Call [phone] if you are unable to keep your appointment time. BREAST CARE: * Wear a snug supportive bra. * For engorgement discomfort: Breast Feeding: * Apply warm moist washcloths * Express milk as needed to relieve engorgement * Wear loose clothing * For sore nipples: * Identify correct latch-on * Apply warm moist washcloths before and after nursing * Air dry nipples after nursing * May apply Lansinoh cream to nipples PERINEAL CARE: * Until bleeding stops, use your anderson bottle after urinating * Change your pad frequently throughout the day * You may take sitz baths several times a day (fill your bathtub with warm water and soak for 20 minutes.) Do NOT bathe in the water * No tub baths until seen by your physician - You may shower ACTIVITY: * Rest as much as possible. * Do not exercise or lift anything heavier than your baby (such as laundry or other children.) * Avoid stairs or driving as much as possible. * Do not put anything into the vagina. No douching, tampons, or sexual activity until seen by physician. NOTIFY PHYSICIAN IF YOU HAVE ANY QUESTIONS OR IF ANY OF THE FOLLOWING SYMPTOMS OCCUR: * If your perineum becomes red, swollen, or more painful than what you have experienced in the hospital. * If your vaginal bleeding becomes foul smelling. * If your vaginal bleeding becomes more heavy than a period or if your bleeding changes from pink to bright red. However, you may pass an occasional walnut-sized clot once or twice for the first week . * If you experience a sharp, shooting pain in you calves. * If you discover a hard, reddened area on your breast or if you experience flu-like symptoms. DIET: * Eat regular, well-balanced meals. * Drink plenty of fluids daily. <Sakshi Darling MD - Last Filed: 07/10/24 09:28> Patient Language: Rwandan <Sakshi Darling MD - Last Filed: 07/10/24 09:28> Stand Alone Forms: General Discharge Information <Sakshi Darling MD - Last Filed: 07/10/24 09:28> Follow-up/Referrals: Sakshi Darling MD [Physician] - 6 Weeks <Sakshi Darling MD - Last Filed: 07/10/24 09:28> Discharge Medications: Continued prenat.vits,jessica,jin-vsuc-zjvor Tablet 1 tablet PO DAILY cholecalciferol (vitamin D3) 10 mcg (400 unit) capsule 10 mcg PO DAILY Qty: 30 0RF magnesium 30 mg Tablet 30 mg PO DAILY aspirin 81 mg tablet,chewable 81 mg PO DAILY <Sakshi Darling MD - Last Filed: 07/10/24 09:28> Date of admission: 07/07/24 05:42 <Sakshi Darling MD - Last Filed: 07/10/24 09:28> Primary Care Provider: Simone Martinez <Sakshi Darling MD - Last Filed: 07/10/24 09:28> Admitting Provider: Sakshi Darling <Sakshi Darling MD - Last Filed: 07/10/24 09:28> Attending physician on admission: Sakshi Darling <Sakshi Darling MD - Last Filed: 07/10/24 09:28> Condition: Stable <Sakshi Darling MD - Last Filed: 07/10/24 09:28>
[2024-07-07] MEDS: OXYTOCIN 30 UNITS/NS 500 ML 30 UNITS/500 ML BAG 125 UNITS IV CONT (17:01)
[2024-07-07] MEDS: IBUPROFEN 600 MG TABLET PO (18:55)
[2024-07-07] MEDS: WITCH HAZEL 40 PADS 1 PAD TOPICAL (18:55)
[2024-07-07] MEDS: BENZOCAINE 20% AER SPR (*SP) 56 GM CAN 1 SPRAY TOPICAL (18:55)
--- NOTE | 2024-07-07 19:10 | OBPPTRN ---
Patient transferred to post room #279 via w/c. Support person present. Oriented to unit, room, information board, rooming in, admission packet and security measures. Patient verbalizes understanding.
[2024-07-08 00:10] VITALS: BP 120/81; PULSE 78; RESP 18; TEMP 36.6
[2024-07-08 05:06] LABS: Hematocrit 37.3 % (37.0-47.0); Hemoglobin 12.3 g/dL (12.0-15.0)
[2024-07-08 07:10] VITALS: BP 109/82; PULSE 77; RESP 18; TEMP 37
--- NOTE | 2024-07-08 08:11 | P.PNOB_ITS ---
OB - PN: Subj Subjective Date/time seen: 07/08/24 08:11 Patient comments: no complaints, pain well controlled and tolerating diet [place] baby status: doing well OB - PN: Obj Data Labs 07/08/24 04:14 Labs: Laboratory Results - last 24 hr 07/08/24 04:14 Hgb 12.3 Hct 37.3 OB - PN A/P Assessment and Plan (1) 38 weeks gestation of : Code(s): Z3A.38 - 38 weeks gestation of Status: Acute (2) (normal spontaneous vaginal delivery): Code(s): O80 - Encounter for full-term uncomplicated delivery Status: Acute Plan Comments: routine care Time Spent With Patient Time: Total time spent is greater than 50% in coordination of care (as documented) at patient's floor/unit and/or counseling patient: Review of Systems 2 Review of Systems: All systems reviewed & are unremarkable except as noted in HPI and below Exam 2 Const: General: cooperative, healthy appearing and comfortable O rientation/consciousness: oriented to person, oriented to place and oriented to time Resp: Effort & Inspection: normal respiratory effort GI: Inspection: normal to inspection
[2024-07-08] MEDS: MULTIVIT/MIN/PREN/FOL AC/IRON TABLET 1 TAB PO (12:20)
--- NOTE | 2024-07-08 15:00 | PC.NURSE ---
Mother verbalizes she is able to independently latch with appropriate positioning and alignment. She denies any nipple discomfort and is responsively . She has breastfed her 10 other children. Infant is currently meeting outcomes for weight, output, jaundice, blood sugar and feeding frequencies of 8-12 times in 24 hours. Mother declines any additional assistance or education at this time. Mother is encouraged to call for assistance if her doesn?t latch, pain with latching, questions or concerns. Mother voiced understanding of information shared along with the mom/baby guide for an additional resource. Reported to the Primary RN.
[2024-07-08 18:45] VITALS: BP 120/74; PULSE 78; RESP 16; TEMP 36.4; O2SAT 97
[2024-07-08 20:41] VITALS: BP 118/69; PULSE 77; PULSE 78; O2SAT 98
[2024-07-08 20:45] VITALS: BP 118/69; PULSE 78; RESP 16; TEMP 36.6; O2SAT 98
[2024-07-09 07:19] VITALS: BP 108/71; PULSE 75
[2024-07-09 07:20] VITALS: RESP 20; TEMP 36.3
--- NOTE | 2024-07-09 08:40 | P.PNOB_ITS ---
OB - PN: Subj Subjective Date/time seen: 07/09/24 08:40 Patient comments: no complaints, pain well controlled and tolerating diet [place] baby status: doing well OB - PN: Obj Data Labs 07/08/24 04:14 OB - PN A/P Assessment and Plan (1) 38 weeks gestation of : Code(s): Z3A.38 - 38 weeks gestation of Status: Acute (2) (normal spontaneous vaginal delivery): Code(s): O80 - Encounter for full-term uncomplicated delivery Status: Acute Plan home Time Spent With Patient Time: Total time spent is greater than 50% in coordination of care (as documented) at patient's floor/unit and/or counseling patient: Review of Systems 2 Review of Systems: All systems reviewed & are unremarkable except as noted in HPI and below Exam 2 Const: General: cooperative, healthy appearing and comfortable Nutritional Appearance: average body habitus Orientation/consciousness: oriented to person, oriented to place and oriented to time HENMT: Head: normal to inspection Resp: Effort & Inspection: normal respiratory effort Cardio: Rate: regular rate Rhythm: regular rhythm Heart sounds: S1 normal heart sound present and S2 normal heart sound present GI: Inspection: normal to inspection
[2024-07-10 08:10] VITALS: BP 126/79; PULSE 85; RESP 18; TEMP 36.5; O2SAT 100
== END 2024-07-09 10:39 | disposition home or self-care (01) | DRG 807 ==
LOC: ANHLDR 16:43 → ANHOB2 19:53 → ANHOBPP 07-08 19:59
PROVIDERS: Admitting Provider Obstetrics & Gynecology Gynecology; PCP Internal Medicine; Visit Provider Obstetrics & Gynecology Gynecology
DX: O69.81X0 Labor and delivery complicated by cord around neck, without compression, not applicable or unspecified (principal); Z37.0 Single live birth; Z3A.39 39 weeks gestation of pregnancy
CPT/HCPCS: 36415; 85014; 85018; 85025; 86593; 86703; 86850; 86900; 86901; A9270; G0432; J2210; J2590; J7120